=== PATIENT | female | born 1965 | race Caucasian/White ===

== ENCOUNTER 2016-12-25 20:35 | Emergency (ER) | payer SELFPAY ==
[~2016-12-25 20:35] MED LIST: Sodium Chloride 0.9% 100 ML BAG ONE
--- NOTE | 2016-12-25 22:53 | RAD ---
FRONTAL VIEW CHEST 12/25/16 COMPARISON: 04/07/15 CLINICAL HISTORY: Dyspnea. FINDINGS: There is hyperinflation of the lungs. No consolidation. No effusion or pneumothorax Cardiac silhoue tte is accentuated by portable technique. IMPRESSION: No focal consolidation. POS: [facility]
[2016-12-25] MEDS ORDERED: Naproxen 500 MG TAB ONE (23:54)
[2016-12-25] MEDS ORDERED: AMOXicillin 250 MG CAP ONE (23:54)
[2016-12-25] MEDS ORDERED: Benzonatate 100 MG CAP ONE (23:54)
[2016-12-25] MEDS ORDERED: Dexamethasone 10 MG/ML VIAL ONE (23:54)
[2016-12-25] MEDS ORDERED: cefTRIAXone\\ROCEPHIN 1 GM VIAL ONE (23:54)
[2016-12-25] MEDS ORDERED: methylPREDNISolone Sod Succ/PF 125 MG/2 ML VIAL ONE (23:54)
[2016-12-26 00:36] LABS: #Basophils 0.1 thou/uL (0.0-0.2); #Eosinphils 0.1 thou/uL (0.0-0.7); #Lymphocytes 2.6 thou/uL (1.20-3.40); #Monocytes 0.6 thou/uL (0.11-0.59); #Neutrophils 4.7 thou/uL (1.40-6.50); %Basophils 1.4 % (0.0-1.0); %Eosinophils 0.8 % (0.0-10.0); %Lymphocytes 32.6 % (21.0-51.0); %Monocytes 7.4 % (0.0-10.0); %Neutrophils 57.7 % (42.0-75.0); Hemoglobin 11.9 g/dL (12.0-16.0); Mean Corpuscular HGB CONC 31.8 g/dL (32.0-36.0); Mean Corpuscular Hemoglobin 24.4 pg (27.0-31.0); Mean Corpuscular Volume 76.8 fl (81.0-99.0); Mean Platelet Volume 10.6 fL (7.4-10.4); Platelet Count 216 thou/uL (130-400); RBC Distribution Width 15.2 % (11.5-14.5); Red Blood Cell (RBC) Count 4.88 mill/uL (4.20-5.40); White Blood Cell (WBC) Count 8.1 thou/uL (4.8-10.8)
[2016-12-26 00:46] LABS: Manual Diff?? NO
== END 2016-12-26 01:24 | disposition home or self-care (01) ==
LOC: MADERS 20:35
DX: J20.9 Acute bronchitis, unspecified (principal); K21.9 Gastro-esophageal reflux disease without esophagitis; J45.909 Unspecified asthma, uncomplicated; J44.9 Chronic obstructive pulmonary disease, unspecified; F32.9 Major depressive disorder, single episode, unspecified
CPT/HCPCS: 71010; 85025; 94640; 96365; 96375; J0696; J1100; J2930; J7050; J7620

== ENCOUNTER 2017-08-05 20:53 | Emergency (ER) | payer MEDICARE, SELFPAY ==
[~2017-08-05 20:53] MED LIST changes: +Nitroglycerin 0.4 MG TAB (25 Tab Bottle) ONE; -Sodium Chloride 0.9% 100 ML BAG ONE
--- NOTE | 2017-08-05 21:43 | RAD ---
RADIOGRAPH CHEST 1 VIEW: 08/05/17 HISTORY: 51-year-old female with acute chest pain. FINDINGS: There are no air space densities, pulmonary edema, pneumothorax, or cardiomegaly. The lateral costop hrenic angles are sharp. IMPRESSION: No acute cardiopulmonary findings. george [] POS: [facility]
[2017-08-05] MEDS ORDERED: Aspirin 325 MG TAB ONE (21:49)
[2017-08-05] MEDS ORDERED: Mag-Al Plus 1200 MG/1200 MG/120 MG/30 ML UDCUP ONE (21:49)
[2017-08-05] MEDS ORDERED: Lidocaine Viscous Sol 2% 15 ml UD Cup ONE (21:49)
[2017-08-05 22:27] LABS: Hemoglobin 12.5 g/dL (12.0-16.0); Mean Corpuscular HGB CONC 32.4 g/dL (32.0-36.0); Mean Corpuscular Hemoglobin 25.9 pg (27.0-31.0); Mean Corpuscular Volume 80.1 fL (81.0-99.0); Red Blood Cell (RBC) Count 4.82 mill/uL (4.20-5.40); White Blood Cell (WBC) Count 7.8 thou/uL (4.8-10.8)
[2017-08-05 22:28] LABS: #Basophils 0.1 thou/uL (0.0-0.2); #Eosinphils 0.1 thou/uL (0.0-0.7); #Lymphocytes 2.7 thou/uL (1.20-3.40); #Monocytes 0.4 thou/uL (0.11-0.59); #Neutrophils 4.4 thou/uL (1.40-6.50); %Basophils 1.8 % (0.0-1.0); %Eosinophils 0.7 % (0.0-10.0); %Monocytes 5.5 % (0.0-10.0); Mean Platelet Volume 10.4 fL (7.4-10.4); Platelet Count 261 thou/uL (130-400); RBC Distribution Width 14.7 % (11.5-14.5)
[2017-08-05 22:33] LABS: Anion Gap 17 mmol/L (10-20); BUN (Urea Nitrogen) 11 mg/dL (7.0-18.7); Calc. Creatinine Clearance 0 mL/min (70-130); Carbon Dioxide 22 mmol/L (22-29); Chloride 105 mmol/L (98-107); Estimated GFR-MDRD Greater than 90; Potassium 3.8 mmol/L (3.5-5.1); Sodium 140 mmol/L (136-145)
[2017-08-05 22:34] LABS: Albumin 3.9 g/dL (3.5-5.0); Alkaline Phosphatase 57 U/L (40-150); Bilirubin, Total 0.8 mg/dL (0.2-1.2); Calcium 8.7 mg/dL (7.8-10.44); Globulin 2.6 g/dL (2.4-3.5); Glucose 146 mg/dL (70-105); Protein, Total 6.5 g/dL (6.0-8.3)
[2017-08-05 22:35] LABS: ALT (SGPT) 11 U/L (8-55); AST (SGOT) 15 U/L (5-34); Lipase 34 U/L (8-78)
[2017-08-05 22:39] LABS: CKMB 1.9 ng/mL (0-6.6); Troponin I 0.014 ng/mL (< 0.028)
== END 2017-08-05 23:30 | disposition home or self-care (01) ==
LOC: MADERS 20:53
DX: R10.10 Upper abdominal pain, unspecified (principal); F32.9 Major depressive disorder, single episode, unspecified; J45.909 Unspecified asthma, uncomplicated; K21.9 Gastro-esophageal reflux disease without esophagitis; Z79.899 Other long term (current) drug therapy
CPT/HCPCS: 36415; 71045; 80053; 82553; 83690; 83880; 84484; 85025; 85379; 93005

== ENCOUNTER 2020-06-08 18:37 | Emergency (ER) | payer MEDICARE ==
[2020-06-08 19:28] LABS: Hemoglobin 14.1 g/dL (12.0-16.0); Mean Corpuscular HGB CONC 30.7 g/dL (32.0-36.0); Mean Corpuscular Hemoglobin 24.7 pg (27.0-31.0); Mean Corpuscular Volume 80.6 fL (78.0-98.0); Mean Platelet Volume 10.3 fL (7.4-10.4); Platelet Count 250 thou/uL (130-400); RBC Distribution Width 13.9 % (11.5-14.5); Red Blood Cell (RBC) Count 5.69 mill/uL (4.20-5.40); White Blood Cell (WBC) Count 8.7 thou/uL (4.8-10.8)
--- NOTE | 2020-06-08 19:29 | RAD ---
Chest one view HISTORY: Chest pain. Dyspnea. COMPARISON: 08/05/2017. FINDINGS: Cardiac silhouette and pulmonary vasculature are unremarkable. Mediastinum is midline. No l obar consolidation or evidence of pneumothorax. IMPRESSION : No abnormalities are demonstrated.
[2020-06-08] MEDS ORDERED: methylPREDNISolone Sod Succ/PF 125 MG/2 ML VIAL ONE (19:34)
[2020-06-08 19:35] LABS: ALT (SGPT) 13 U/L (8-55); AST (SGOT) 18 U/L (5-34); Albumin 4.3 g/dL (3.5-5.0); Alkaline Phosphatase 87 U/L (40-110); Anion Gap 17 mmol/L (10-20); BUN (Urea Nitrogen) 16 mg/dL (9.8-20.1); Bilirubin, Total 0.6 mg/dL (0.2-1.2); Calc. Creatinine Clearance 0 mL/min (70-130); Calcium 9.1 mg/dL (7.8-10.44); Carbon Dioxide 26 mmol/L (22-29); Chloride 102 mmol/L (98-107); Glucose 147 mg/dL (70-105); Lipase 61 U/L (8-78); Potassium 3.7 mmol/L (3.5-5.1); Protein, Total 7.3 g/dL (6.0-8.3); Sodium 141 mmol/L (136-145)
[2020-06-08 19:51] LABS: #Basophils 0.2 thou/uL (0.0-0.2); #Eosinphils 0.1 thou/uL (0.0-0.7); #Lymphocytes 2.2 thou/uL (1.20-3.40); #Monocytes 0.5 thou/uL (0.11-0.59); #Neutrophils 5.8 thou/uL (1.40-6.50); %Basophils 1.7 % (0.0-1.0); %Eosinophils 1.1 % (0.0-10.0); %Lymphocytes 24.8 % (21.0-51.0); %Monocytes 6.2 % (0.0-10.0); %Neutrophils 66.2 % (42.0-75.0); Platelet Morphology Comment Appears Adequate; RBC Morphology Normal
[2020-06-08 19:57] LABS: Base Excess-Venous 4.2 mmol/L (-2.0 to 3.0); Bicarbonate (HCO3v) 30.3 mmol/L (22.0-28.0); CO2 Tension (PvCO2) 49.9 mmHg (40.0-50.0); Calcium, Ionized 1.14 mmol/L (1.15-1.33); Chloride 102 mmol/L (98-107); Hemoglobin - Calc 14.2 g/dL (12.0-16.0); Potassium 3.4 mmol/L (3.5-5.1); Sodium 142 mmol/L (138-145); T. Carbon Dioxide 31.8 mmol/L (22.0-28.0); vO2 Saturation-calc 96.9 % (60.0-85.0)
== END 2020-06-08 21:12 | disposition home or self-care (01) ==
LOC: MADERS 18:37
DX: J43.9 Emphysema, unspecified (principal); R07.9 Chest pain, unspecified; K21.9 Gastro-esophageal reflux disease without esophagitis; Z79.51 Long term (current) use of inhaled steroids
CPT/HCPCS: 71046; 80053; 82330; 82803; 83690; 84484; 85025; 93005; 96374; J2930; J7620